=== PATIENT | female | born 1980 | race Caucasian/White ===

== ENCOUNTER 2018-08-24 20:00 | Emergency (ER) | payer SELFPAY ==
[2018-08-24] MEDS ORDERED: Diazepam 5 MG TAB ONE (20:18)
--- NOTE | 2018-08-24 20:34 | RAD ---
AP CHEST: 08/24/18 INDICATIONS: Chest pain. Lungs are clear of infiltrate. Vasculature normal. Heart size is normal. IMPRESSION: Unremarkable chest. POS: [facility]
[2018-08-24] MEDS ORDERED: Acetaminophen 500 MG TAB ONE (21:48)
[2018-08-24 21:52] LABS: Bilirubin Negative (Negative); Blood, Urine Negative (Negative); Clarity TURBID (Clear); Glucose, Urine (Dipstick) Negative (Negative); Leukocyte Large (Negative); Nitrite Positive (Negative); Protein, Urine (Dipstick) 100 mg/dL (Neg-Trace); Specific Gravity, Urine 1.019 (1.002-1.036); pH, Urine 7.5 (5.0-9.0)
[2018-08-24 21:54] LABS: Bacteria/HPF 4+ HPF (None Seen); RBC/HPF 0-3 HPF (0-3); Squamous Epithelial 21-50 HPF (0-3)
[2018-08-24 21:55] LABS: Pathc Cast-AUWi Flag 3.57 (0-2.49)
[2018-08-24 22:03] LABS: Hyaline Casts/LPF NONE SEEN LPF (0-3 Hyaline)
[2018-08-24 22:04] LABS: Amphetamine Not Detected (NotDetected); Barbiturates Screen Not Detected (NotDetected); Benzodiazepine Screen Not Detected (NotDetected); Cocaine Metabolite Screen Not Detected (NotDetected); Medtox Control Line Valid? VALID (VALID); Medtox Reader # READER 4; Methadone Not Detected (NotDetected); Methamphetamine Not Detected (NotDetected); Opiate Screen Not Detected (NotDetected); Oxycodone Screen Not Detected (NotDetected); Phencyclidine (PCP) Not Detected (NotDetected); THC/Cannabinoid Screen Not Detected (NotDetected); Tricyclic Screen Not Detected (NotDetected)
== END 2018-08-24 22:32 | disposition home or self-care (01) ==
LOC: ERS 20:00
DX: O09.521 Supervision of elderly multigravida, first trimester (principal); O99.341 Other mental disorders complicating pregnancy, first trimester; F41.9 Anxiety disorder, unspecified; O23.41 Unspecified infection of urinary tract in pregnancy, first trimester; Z3A.12 12 weeks gestation of pregnancy
CPT/HCPCS: 71045; 80306; 81003; 81015; 93005; 96360

== ENCOUNTER 2019-03-11 15:38 | Inpatient (IN) | payer MEDICARE, MEDICAID ==
[2019-03-11 16:13] VITALS: BMI 25.9
[2019-03-11] MEDS ORDERED: Promethazine HCl 25 MG/ML VIAL IM PRN ×2 (16:42→19:00)
[2019-03-11] MEDS ORDERED: hydrALAZINE 20 MG/ML VIAL SLOW IVP PRN (16:42)
[2019-03-11] MEDS ORDERED: Ondansetron PF 4 MG/2 ML Vial IVP PRN ×2 (16:42→19:00)
[2019-03-11 16:45] LABS: Amphetamine Not Detected (NotDetected); Barbiturates Screen Not Detected (NotDetected); Benzodiazepine Screen Not Detected (NotDetected); Cocaine Metabolite Screen Not Detected (NotDetected); Medtox Control Line Valid? VALID (VALID); Medtox Reader # READER 4; Methadone Not Detected (NotDetected); Methamphetamine Not Detected (NotDetected); Opiate Screen Not Detected (NotDetected); Oxycodone Screen Not Detected (NotDetected); Phencyclidine (PCP) Not Detected (NotDetected); THC/Cannabinoid Screen Not Detected (NotDetected); Tricyclic Screen Not Detected (NotDetected)
[2019-03-11] MEDS ORDERED: Lactated Ringer's 1,000 ML IV SCH (16:45)
[2019-03-11] MEDS ORDERED: Bicitra 30 ML UDCUP ONE (16:53)
[2019-03-11 16:57] LABS: Hemoglobin 11.1 g/dL (12.0-16.0); Mean Corpuscular HGB CONC 33.4 g/dL (32.0-36.0); Mean Corpuscular Hemoglobin 27.4 pg (27.0-31.0); Mean Platelet Volume 11.5 fL (7.4-10.4); Platelet Count 119 thou/uL (130-400); RBC Distribution Width 13.4 % (11.5-14.5); Red Blood Cell (RBC) Count 4.06 mill/uL (4.20-5.40)
[2019-03-11] MEDS ORDERED: Ketorolac Tromethamine 30 MG/ML VIAL ONE (16:59)
[2019-03-11] MEDS ORDERED: ePHEDrine/0.9% NaCl/PF SYRINGE 50 mg/10 ml ONE (16:59)
[2019-03-11] MEDS ORDERED: Ondansetron PF 4 MG/2 ML Vial ONE (16:59)
[2019-03-11] MEDS ORDERED: Oxytocin 10 UNITS/ML VIAL ONE (16:59)
[2019-03-11] MEDS ORDERED: Bicitra 30 ML UDCUP PO SCH (17:00)
[2019-03-11] MEDS ORDERED: CEFAZOLIN 2 GM in Premix Bag 1 BAG IVPB ONE (17:00)
[2019-03-11] MEDS ORDERED: MORPHINE 5 MG/10 ML PF VIAL ONE (17:00)
[2019-03-11 17:33] LABS: Syphilis Antibody Nonreactive (Nonreactive); Syphilis Antibody Index 0.04 S/CO (<1.00 Non-Reactive)
[2019-03-11 17:34] LABS: HBSAg Index 0.13 S/CO (0-0.99); Hep B Surf Ag Non-Reactive S/CO (NonReactive)
[2019-03-11] MEDS ORDERED: L&D-Morphine 4 MG/ML VIAL SLOW IVP PRN (19:00)
[2019-03-11] MEDS ORDERED: Naloxone HCl 0.4 mg/ml Vial IVP PRN ×2 (19:00)
[2019-03-11] MEDS ORDERED: diphenhydrAMINE 50 MG/ML VIAL IVP PRN (19:00)
[2019-03-11] MEDS ORDERED: Ondansetron HCl/PF 4 MG/2 ML Vial IVP PRN (19:00)
[2019-03-11] MEDS ORDERED: Ketorolac Tromethamine 30 MG/ML VIAL IVP PRN (19:00)
[2019-03-11] MEDS ORDERED: Promethazine HCl 25 MG SUPP PR PRN (19:00)
[2019-03-11] MEDS ORDERED: Meperidine HCl/PF 25 MG/ML VIAL SLOW IVP PRN (19:00)
[2019-03-11] MEDS ORDERED: Naloxone HCl 0.4 mg/ml Vial IV PRN (19:00)
[2019-03-11] MEDS ORDERED: HYDROmorphone 2 MG/ML VIAL SLOW IVP PRN (19:00)
[2019-03-11] MEDS ORDERED: Ketorolac Tromethamine 30 MG/ML VIAL IVP SCH (19:00)
[2019-03-11] MEDS ORDERED: Communication Order-Pharmacy FS SCH (19:00)
[2019-03-11] MEDS ORDERED: Zolpidem Tartrate 5 MG TAB PO SCH (22:15)
[2019-03-12] MEDS: Lactated Ringer's 1,000 ML IV SCH ×4 (00:32→17:39)
--- NOTE | 2019-03-12 00:51 | OP ---
DATE OF PROCEDURE: 03/11/2019 PRIMARY OB: Lizeth Escobedo MD Ms. April Parham had a repeat performed by Lizeth Escobedo. I functioned as a sampler first in this case. Please refer to her operative note for complete details. Job ID: [id number]
[2019-03-12] MEDS: ALPRAZolam 0.5 MG TAB PO PRN (09:13)
[2019-03-12] MEDS ORDERED: HYDROcodone/Acetaminophen 5/325 mg Tablet PO PRN ×2 (11:34)
[2019-03-12] MEDS ORDERED: Ondansetron PF 4 MG/2 ML Vial IVP PRN (11:34)
[2019-03-12] MEDS ORDERED: hydrALAZINE 20 MG/ML VIAL SLOW IVP PRN (11:34)
[2019-03-12] MEDS ORDERED: diphenhydrAMINE 25 MG CAP PO PRN (11:34)
[2019-03-12] MEDS ORDERED: Simethicone Chewable 80 MG TAB PO PRN (11:34)
[2019-03-12] MEDS ORDERED: Adacel (T-DAP) 0.5 ML SYRINGE IM ONE (11:34)
[2019-03-12] MEDS: Ibuprofen 800 MG TAB PO SCH ×2 (13:47→21:34)
[2019-03-12] MEDS ORDERED: Sodium Chloride 0.9% 10 ML ONE (16:35)
[2019-03-12] MEDS: Zolpidem Tartrate 5 MG TAB PO SCH (21:34)
[2019-03-13] MEDS: Lactated Ringer's 1,000 ML IV SCH ×3 (02:01→14:05)
[2019-03-13] MEDS: Ibuprofen 800 MG TAB PO SCH ×3 (05:10→21:58)
[2019-03-13 07:12] LABS: Hemoglobin 8.7 g/dL (12.0-16.0); Mean Corpuscular HGB CONC 33.8 g/dL (32.0-36.0); Mean Corpuscular Hemoglobin 28.6 pg (27.0-31.0); Mean Corpuscular Volume 84.6 fL (78.0-98.0); Mean Platelet Volume 10.8 fL (7.4-10.4); Platelet Count 116 thou/uL (130-400); RBC Distribution Width 13.4 % (11.5-14.5); Red Blood Cell (RBC) Count 3.04 mill/uL (4.20-5.40); White Blood Cell (WBC) Count 8.2 thou/uL (4.8-10.8)
[2019-03-13] MEDS: Prenatal Vitamin 1 TAB PO SCH (09:12)
[2019-03-13] MEDS: ALPRAZolam 0.5 MG TAB PO PRN (14:19)
--- NOTE | 2019-03-13 17:55 | OP ---
DATE OF PROCEDURE: 03/11/2019 PREOPERATIVE DIAGNOSES: 1. A 38-year-old G4, P3-0-0-3 with a history of 3 prior deliveries, in active labor. 2. Noncompliant with less than 5 visits at [facility]. 3. Advanced maternal age. 4. Post-traumatic stress disorder and anxiety with significant affect irregularities. 5. Group B Streptococcus unknown. 6. Rubella nonimmune. POSTOPERATIVE DIAGNOSES: 1. A 38-year-old G4, P3-0-0-3 with a history of 3 prior deliveries, in active labor. 2. Noncompliant with less than 5 visits at [facility]. 3. Advanced maternal age. 4. Post-traumatic stress disorder and anxiety with significant affect irregularities. 5. Group B Streptococcus unknown. 6. Rubella nonimmune. 7. Live-born male , weighing 11 pounds even with Apgars of 8 and 9 at 1 and 5 minutes respectively. ANESTHESIA: Spinal. QUANTITATIVE BLOOD LOSS: 429 mL. CLINICAL HISTORY: This patient is a 38-year-old female, who presented for a concern of regular contractions that were painful. She was evaluated and noted to have a category 1 tracing, but was 5 cm dilated, 80% effaced and regularly fabby. The patient had a history of 3 prior sections and gave a history of a uterine rupture before; however, this was not supported by her medical records or her subsequent surgical evaluation. The patient appears to have a very strange affect at baseline. When she speaks with you, she continues to keep her eyes closed and is very short. She readily admits that she has PTSD and anxiety. The patient was admitted and taken to the OR for her repeat low-transverse section. She did not have a GBS on record, only her labs which were all normal, except for a rubella that is nonimmune. The patient was attempted to be reached for the last 3 weeks to schedule her a repeat ; however, she declined to come to the office for her visits because Medicaid would not transport her significant other and she noted that the times in the morning that she was scheduled for was way too early for her. DESCRIPTION OF PROCEDURE: The patient was taken to the operating room, where spinal anesthesia was obtained. She was laid in the supine position with a leftward tilt and she was prepped and draped in the usual sterile fashion. A Moyer catheter was placed. After testing for adequate anesthesia, an incision was made over her previous incision very lightly, and this was carried down to the fascia, which was very close to the skin layer. Once the fascia was nicked in the midline, this was extended out bilaterally and the rectus muscles, which were essentially non-existent, were elevated off the superior and inferior border of the fascia. The muscles were and the peritoneum was breached high and extended out bilaterally. The bladder blade was placed. The bladder flap was created, and an incision was made over the lower uterine segment. An amniotomy was performed with clear fluid. This incision was extended bilaterally, and the surgeon's hand was placed into reach the head of the infant and then deliver through the incision. The head was delivered followed by anterior shoulder, followed by the posterior shoulder, and then, the remainder of the 's body. The infant was a very large and cried spontaneously. The cord was doubly clamped and cut, and handed over to the Neonatology Team in attendance to the delivery. The placenta was then delivered manually intact with a 3-vessel cord, and the uterus was delivered through the incision and cleansed of all debris. The uterus firmed nicely and the incision was closed in a running locking fashion with excellent hemostasis. A second imbricating layer was then performed for reinforcement and the gutters were cleansed of all debris and the bladder flap was then re-approximated with a 3-0 Monocryl. After cleansing the anterior surface of the uterus, Seprafilm in 4 pieces was placed over the anterior surface and the uterus was placed back into the abdomen. The peritoneum was closed in a running fashion. Then, the rectus muscles were reapproximated in a [id number] sutures. The fascia was then closed in a running fashion, and the subcutaneous tissues were also irrigated and closed with several interrupted sutures. The skin was then closed in a running fashion with a 3-0 Jonathan needle with excellent hemostasis, and Steri-Strips were placed over to reinforce this closure. A pressure dressing was placed, and the patient was cleansed and de-draped expressed and then sent to the recovery area after needle, sponge, laps, and instrument counts were correct x2. There were no other issues surrounding this delivery. The patient again was allowed to recover in the recovery room with her live-born male , weighing 11 pounds 0 ounce with Apgars of 8 and 9 at 1 and 5 minutes respectively. Due to the concern for social arrangements and disrupted affect, [employer] consult was made. Job ID: [id number]
[2019-03-13] MEDS: Zolpidem Tartrate 5 MG TAB PO SCH (21:59)
[2019-03-14] MEDS: Ibuprofen 800 MG TAB PO SCH ×2 (06:24→15:00)
[2019-03-14] MEDS: Lactated Ringer's 1,000 ML IV SCH ×3 (06:24→15:01)
[2019-03-14 08:21] VITALS: BP 117/71; TEMP 97.5
[2019-03-14] MEDS: Prenatal Vitamin 1 TAB PO SCH (09:37)
== END 2019-03-14 17:25 | disposition home or self-care (01) | DRG 788 ==
LOC: L&D/OP 15:38 → L&D 17:59 → 3SW 22:16
PROVIDERS: ADMIT Obstetrics & Gynecology; ATTEND Obstetrics & Gynecology
PROC: 3E0234Z Introduction of Serum, Toxoid and Vaccine into Muscle, Percutaneous Approach (ICD-10-PCS; 2019-03-12)
PROC: 10D00Z1 Extraction of Products of Conception, Low, Open Approach (ICD-10-PCS; principal; 2019-03-13)
PROC: 3E0P05Z Introduction of Adhesion Barrier into Female Reproductive, Open Approach (ICD-10-PCS; 2019-03-13)
DX: O99.344 Other mental disorders complicating childbirth (principal); O34.211 Maternal care for low transverse scar from previous cesarean delivery; F41.9 Anxiety disorder, unspecified; F43.10 Post-traumatic stress disorder, unspecified; Z23 Encounter for immunization; Z3A.39 39 weeks gestation of pregnancy; Z37.0 Single live birth; Z91.19 Patient's noncompliance with other medical treatment and regimen
CPT/HCPCS: 36415; 80306; 85027; 86780; 86850; 86900; 86901; 87340; J0690; J1200; J1885; J2274; J2310; J2405; J2590